=== PATIENT | male | born 1970 | race Caucasian/White ===

== ENCOUNTER 2019-06-05 19:18 | Emergency (ER) | payer BC, OTHER ==
[2019-06-05] MEDS ORDERED: Ibuprofen 800 MG TAB ONE (19:41)
--- NOTE | 2019-06-06 07:14 | RAD ---
CHEST 2 VIEWS: Date: 06/05/2019 The heart is normal in size. There are no major lobar infiltrates or effusions. The only area in ques tion was a little bit of minimal lingular streaking, and this finding is equivocal at best. Calcified granulomas are suggested. The spine appears intact. IMPRESSION: No definite acute findings. POS: HOME
== END 2019-06-05 20:27 | disposition home or self-care (01) ==
LOC: BURERS 19:18
DX: J11.00 Influenza due to unidentified influenza virus with unspecified type of pneumonia (principal); E78.2 Mixed hyperlipidemia; I10 Essential (primary) hypertension; F41.9 Anxiety disorder, unspecified; Z79.899 Other long term (current) drug therapy
CPT/HCPCS: 71046; 87804; 93005